=== PATIENT | male | born 1935 | race Caucasian/White ===

== ENCOUNTER 2021-11-21 12:28 | Observation (INO) | payer OTHER ==
[~2021-11-21] VITALS: Ht 177.8 cm; Wt 65.3 kg
--- NOTE | 2021-11-21 12:30 | NUR ---
Placed in room 1 . Placed on gas leak inspector, blood pressure machine and pulse oximeter. To gown for exam. Side rails up. Report given to LUCIANA FRYE.
[2021-11-21 12:31] VITALS: BP_SYST 141
--- NOTE | 2021-11-21 12:40 | NUR ---
JERSEY Delarosa at bedside examining patient.
--- NOTE | 2021-11-21 12:54 | NUR ---
EKG performed at by Jeana GARCIA. Physician given copy of EKG for review.
[2021-11-21] MEDS ORDERED: BUME2TAB7 PO ×2 (12:56→13:09)
[2021-11-21] MEDS ORDERED: PRO40 PO (12:56)
[2021-11-21] MEDS ORDERED: TAMS-11 PO (12:58)
[2021-11-21] MEDS ORDERED: MONT-40 PO (12:58)
[2021-11-21] MEDS ORDERED: LIP80 PO (13:05)
[2021-11-21] MEDS ORDERED: NEPH PO (13:05)
[2021-11-21] MEDS ORDERED: DONE10TA44 PO (13:05)
[2021-11-21] MEDS ORDERED: CLOP75TA32 PO (13:05)
[2021-11-21] MEDS ORDERED: APIX2.5T PO (13:05)
[2021-11-21] MEDS ORDERED: NOR10 PO (13:06)
--- NOTE | 2021-11-21 13:07 | NUR ---
Assumed care of pt. Pt is connected to property assessment monitor. VSS. Pt is A&Ox4. Pt answers all questions appropiately. Pt able to move all extremities equally. Pupils PERRLA. No chest pain and no sob. Denies n/v. Cranial nerves intact. Bed in lowest position. Pt has a 18g IV placed on left AC that is intact.
[2021-11-21] MEDS ORDERED: LEVO75TA7 PO (13:08)
[2021-11-21] MEDS ORDERED: CARV6.2554 PO (13:09)
--- NOTE | 2021-11-21 13:10 | NUR ---
Patient transported to radiology via gurney, accompanied by biological science technician fish.
--- NOTE | 2021-11-21 13:15 | NUR ---
Returned from radiology, back to [facility].
[2021-11-21 13:21] LABS: BASOPHILS # (AUTO) 0.1 K/uL (0.0-0.2); BASOPHILS % (AUTO) 1.4 % (0.0-2.0); EOSINOPHILS # (AUTO) 0.8 K/uL (0.0-0.4); EOSINOPHILS % (AUTO) 9.4 % (0.0-4.0); HEMOGLOBIN 11.8 g/dL (14.0-18.0); LYMPHOCYTES # (AUTO) 2.3 K/uL (1.0-5.5); LYMPHOCYTES % (AUTO) 27.2 % (20.5-51.5); MEAN CORPUSCULAR HEMOGLOBIN 32 pg (27-31); MEAN CORPUSCULAR HGB CONC 33 % (32-36); MEAN CORPUSCULAR VOLUME 97 fL (79.0-98.0); MONOCYTES # (AUTO) 0.6 K/uL (0.0-1.0); MONOCYTES % (AUTO) 6.8 % (1.7-9.3); NEUTROPHILS # (AUTO) 4.6 K/uL (1.8-7.7); NEUTROPHILS % (AUTO) 55.2 % (40.0-70.0); PLATELET COUNT (AUTO) 128 K/uL (130-430); RED BLOOD CELL COUNT(AUTO) 3.72 MIL/uL (4.2-6.2); RED CELL DISTRIBUTION WIDTH 18.3 % (9.0-15.0); WHITE BLOOD COUNT (AUTO) 8.3 K/uL (4.8-10.8)
[2021-11-21 13:39] LABS: ANION GAP 9 (5-15); CALCIUM 9.3 mg/dL (8.4-11.0); CHLORIDE 103 mmol/L (98-107); GLUCOSE 108 mg/dL (70-99); POTASSIUM 3.6 mmol/L (3.5-5.1); UREA NITROGEN, BLOOD 59 mg/dL (8-21)
[2021-11-21 13:51] LABS: ALANINE AMINOTRANSFERASE 12 U/L (12-78); ALBUMIN 2.9 g/dL (3.4-4.8); ASPARTATE AMINOTRANSFERASE 21 U/L (10-37); PROTHROMBIN TIME 10.3 SECS (9.5-12.5); TOTAL BILIRUBIN 0.3 mg/dL (0.0-1.0)
[2021-11-21 13:53] LABS: CREATININE 10.05 mg/dL (0.55-1.30)
--- NOTE | 2021-11-21 14:06 | NUR ---
Daughter at bedside. Pt states he cannot urinate at this time. Cup of water given to pt.
--- NOTE | 2021-11-21 14:07 | NUR ---
Covid swab done and sent to lab.
--- NOTE | 2021-11-21 14:09 | NUR ---
RAVENID Swabbed, sent to lab.
--- NOTE | 2021-11-21 15:04 | NUR ---
Admit bed requested Patient will be admitted to care of . Admitted to MedSurg unit. Diagnosis TIA Inpatient (Yes or No) Yes Observation (Yes or No) No Orientation concerns or request close to nursing station (Yes or No) No Covid Status Negative On vent or bipap No Isolation requirements No Needs a sitter No From Home (Yes or if No enter name of facility) Yes Requires Dialysis (Yes or No) Yes Med Rec Completed (Yes of No) Yes
--- NOTE | 2021-11-21 16:56 | NUR ---
Patient will be admitted to care of Dr. Connolly. Admitted to MedSurg unit. Will go to room 112B. Belongings list completed. Complete and up to date summary report printed. SBAR report to be given at bedside with opportunity for questions.
--- NOTE | 2021-11-21 17:00 | NUR ---
Admission Note Received patient from ER with diagnosis of TIA. Initial Plan of Care discussed-patient verbalized understanding. Oriented to room, call light, pain management and safety. vitals stable. denies any pain or orther discomfort.safety/fall precautions in place. call light within reach. will continue to montior
[2021-11-21 17:17] VITALS: BP_SYST 131
--- NOTE | 2021-11-21 17:22 | NUR ---
CONSULTATION PAGED REASON FOR CONSULTATION:TIA WAS CONSULT CALLED?Y -PERSON WHO WAS NOTIFIED:TEXT MESSAGED GENE MUNOZ CONSULTING PHYSICIAN:GENE MUNOZ VICE PRESIDENT [facility] SPECIALTY:NEURO VICE PRESIDENT [facility] PHONE NUMBER:[phone] REQUESTING PHYSICIAN:TOPHER VERA
--- NOTE | 2021-11-21 17:38 | NUR ---
CONSULTATION PAGED REASON FOR CONSULTATION:TIA WAS CONSULT CALLED?Y -PERSON WHO WAS NOTIFIED:IRENE CONSULTING PHYSICIAN:RASHMI BLANKENSHIP VBA DEVELOPER SPECIALTY:[facility]BA DEVELOPER PHONE NUMBER:[phone] REQUESTING PHYSICIAN:TOPHER VERA
--- NOTE | 2021-11-21 18:47 | NUR ---
PAGED CODY CARROLL FOR ORDERS
--- NOTE | 2021-11-21 19:00 | NUR ---
called dr mcnair. informed about med rec. med rec done as ordered by dr mcnair
--- NOTE | 2021-11-21 19:30 | NUR ---
Opening note Received report from day shift. Pt awake lying in bed with family at bedside. No s/s of respiratory distress. Breathing even and unlabored. Dialysis nurse at bedside about to start dialysis. IV site intact and patent saline lock. Fall and safety precautions in place with bed in lowest position, bed alarm on, and call light within reach
--- NOTE | 2021-11-21 19:50 | NUR ---
HIGH ALERT NOTE: Called Dr. Arteaga back identified within the medical roster to verify physician authenticity for HEPARIN 10,000 units
[2021-11-21 20:00] VITALS: BP_SYST 137
[2021-11-21] MEDS ORDERED: HEPARIN SODIUM,PORCINE 5,000 UNITS/ML VIAL SUBCUT ONE (20:00)
[2021-11-21] MEDS ORDERED: HEPARIN SODIUM,PORCINE 5,000 UNITS/ML VIAL MC ONE (20:00)
[2021-11-21] MEDS: APIXABAN 2.5 MG TABLET PO SCH (20:24)
[2021-11-21] MEDS: CARVEDILOL 6.25 MG TABLET (COREG) PO SCH (20:24)
[2021-11-21] MEDS: TAMSULOSIN HCL 0.4 MG CAP PO SCH (21:00)
[2021-11-21] MEDS: ATORVASTATIN 20 MG TABLET PO SCH (21:00)
--- NOTE | 2021-11-21 23:29 | NUR ---
PAGED DR CARROLL Pt c/o headache
[2021-11-22] VITALS: BP_SYST 139
--- NOTE | 2021-11-22 00:02 | NUR ---
2ND PAGE PAGED FOR DR CODY CARROLL
--- NOTE | 2021-11-22 00:27 | NUR ---
3RD PAGE FOR DOCTOR CARROLL FOR ORDERS
--- NOTE | 2021-11-22 00:46 | NUR ---
PAGED PAGED DOCTOR JARED FOR ORDERS SINCE GLEN NEVER CALLED BACK
--- NOTE | 2021-11-22 00:49 | NUR ---
HIGH ALERT NOTE: Called Dr. Arteaga within the medical roster to verify physician authenticity for NORCO 10-325mg 1x
[2021-11-22] MEDS ORDERED: HYDROcodone/ACETAMIN 10-325 MG TAB PO ONE (01:00)
[2021-11-22] MEDS: LEVOTHYROXINE SODIUM 0.075 MG TABLET PO SCH (06:13)
[2021-11-22 08:00] VITALS: BP_SYST 142
[2021-11-22 08:30] LABS: ANION GAP 8 (5-15); CALCIUM 9.5 mg/dL (8.4-11.0); CHLORIDE 98 mmol/L (98-107); CREATININE 6.12 mg/dL (0.55-1.30); GLUCOSE 96 mg/dL (70-99); UREA NITROGEN, BLOOD 26 mg/dL (8-21)
[2021-11-22] MEDS ORDERED: NALOXONE HCL 0.4 MG/ML AMP (NARCAN) IVP PRN (08:30)
[2021-11-22] MEDS: APIXABAN 2.5 MG TABLET PO SCH ×2 (08:59→20:15)
[2021-11-22] MEDS: NEPHROVITE, (FOLIC ACID/VITAMIN B COMP W-C 1 TAB) PO SCH (09:00)
[2021-11-22] MEDS ORDERED: amLODIPine BESYLATE 10 MG TABLET PO SCH (09:00)
[2021-11-22] MEDS: CARVEDILOL 6.25 MG TABLET (COREG) PO SCH ×2 (09:01→20:07)
[2021-11-22] MEDS: HYDROcodone/ACETAMIN 10-325 MG TAB PO PRN ×3 (09:01→21:07)
[2021-11-22] MEDS: DONEPEZIL HCL 5 MG TABLET (ARICEPT) PO SCH (09:02)
[2021-11-22] MEDS: PANTOPRAZOLE SODIUM 40 MG TAB PO SCH (09:02)
[2021-11-22] MEDS: BUMETANIDE 1 MG TABLET PO SCH (09:28)
[2021-11-22] MEDS ORDERED: amLODIPine BESYLATE 10 MG TABLET PO ONE (10:00)
[2021-11-22 12:21] VITALS: BP_SYST 124
[2021-11-22 16:00] VITALS: BP_SYST 127
[2021-11-22] MEDS ORDERED: MONTELUKAST 10 MG TABLET PO SCH (18:00)
--- NOTE | 2021-11-22 19:30 | NUR ---
Opening note Received report from day shift. Pt awake lying in bed. No s/s of respiratory distress. Breathing even and unlabored on 2L nasal cannula. IV site intact and patent saline lock. Fall and safety precautions in place with bed in lowest position, bed alarm on, and call light within reach
[2021-11-22 20:00] VITALS: BP_SYST 142
[2021-11-22] MEDS: TAMSULOSIN HCL 0.4 MG CAP PO SCH (20:07)
[2021-11-22] MEDS: ATORVASTATIN 20 MG TABLET PO SCH (20:07)
[2021-11-23] VITALS: BP_SYST 108
--- NOTE | 2021-11-23 00:15 | NUR ---
Rounds Pt resting in bed, eyes closed. No s/s of acute distress. VSS. Fall and safety checks in place
[2021-11-23] MEDS: HYDROcodone/ACETAMIN 10-325 MG TAB PO PRN (03:13)
[2021-11-23] MEDS: LEVOTHYROXINE SODIUM 0.075 MG TABLET PO SCH (06:25)
[2021-11-23] MEDS ORDERED: amLODIPine BESYLATE 10 MG TABLET PO SCH (09:00)
[2021-11-23] MEDS: APIXABAN 2.5 MG TABLET PO SCH ×2 (09:41→10:30)
[2021-11-23] MEDS: PANTOPRAZOLE SODIUM 40 MG TAB PO SCH ×2 (09:42→10:30)
[2021-11-23] MEDS: DONEPEZIL HCL 5 MG TABLET (ARICEPT) PO SCH ×2 (09:42→10:30)
[2021-11-23] MEDS: NEPHROVITE, (FOLIC ACID/VITAMIN B COMP W-C 1 TAB) PO SCH ×2 (09:42→10:30)
[2021-11-23] MEDS ORDERED: IBUPROFEN 400 MG TABLET PO ONE (10:00)
[2021-11-23] MEDS: BUMETANIDE 1 MG TABLET PO SCH (10:30)
[2021-11-23] MEDS: CARVEDILOL 6.25 MG TABLET (COREG) PO SCH (10:30)
--- NOTE | 2021-11-23 10:49 | NUR ---
Assumed Care from MELVA Krishnan Assumed care from nurse and per nurse am medications were refused by patient. Per RN she pulled out medications and then had to dispose due to patient's refusal. Will assess for his care and continue to monitor.
--- NOTE | 2021-11-23 11:36 | NUR ---
MD KWAN Spoke with MD Hollis regarding Patient's Pacemaker and the MRI can not be done because of it. stated he will inform Dr Connolly.
[2021-11-23 12:10] VITALS: BP_SYST 121
--- NOTE | 2021-11-23 12:10 | NUR ---
Patient Rounds Patient resting in bed. No pain, No distress, no SOB. Patient just finished HD and was noted to have 1.7L removed. HD nurse stated that next scheduled is Saturday unless MD wants to go back to his normal schedule of MWF. All needs met at this time, call light within reach. Will continue to Monitor.
[2021-11-23] MEDS ORDERED: IBUPROFEN 400 MG TABLET PO SCH (15:00)
[2021-11-23 16:04] VITALS: BP_SYST 120
--- NOTE | 2021-11-23 16:05 | NUR ---
Patient Rounds Patient resting in bed. No pain, No distress, no SOB. All needs met at this time, call light within reach. Will continue to Monitor.
[2021-11-23 16:31] VITALS: BP_SYST 120
--- NOTE | 2021-11-23 16:42 | NUR ---
Dietitian Recommendations * Cardiac diet, Ensure Enlive TID (ONS yields 1050 kcal/day, 60 gm protein/day) * Encourage increase PO intakes LP, MS, RD Please refer to Nutrition Assessment for details. Addendum: 11/23/21 at [address] Amended: Links added.
--- NOTE | 2021-11-23 17:01 | NUR ---
Discharge Patient left home with daughter and belongings. No SOB, No pain, No distress. Patient Afibrile. IV to LAC 22 gauge removed. Patient was sent home in daughter's personal car.
== END 2021-11-23 17:28 | disposition home or self-care (01) ==
LOC: SED 12:28 → SMU 14:41 → INTOOBSV 14:41 → SMU 16:42 → STU 16:58
PROVIDERS: ADMIT Specialist; ATTEND Specialist
DX: G45.9 Transient cerebral ischemic attack, unspecified (principal); Z20.822 Contact with and (suspected) exposure to COVID-19; I63.81 Other cerebral infarction due to occlusion or stenosis of small artery; I13.2 Hypertensive heart and chronic kidney disease with heart failure and with stage 5 chronic kidney disease, or end stage renal disease; I50.9 Heart failure, unspecified; N18.6 End stage renal disease; D63.1 Anemia in chronic kidney disease; E03.9 Hypothyroidism, unspecified; J44.9 Chronic obstructive pulmonary disease, unspecified; Z99.2 Dependence on renal dialysis; Z86.73 Personal history of transient ischemic attack (TIA), and cerebral infarction without residual deficits; Z79.899 Other long term (current) drug therapy; Z86.16 Personal history of COVID-19
CPT/HCPCS: 80053; 84443; 85025; 85610; 85730; 86886; 86900; 86901; 87081; 84484; 36415 ×2; 71045; 70450; 76376; 93880; 99285; 87426; 80048; 93306; J1644; G0378 ×3; 90935; 90937